=== PATIENT | female | born 2000 | race Caucasian/White ===

== ENCOUNTER 2023-01-01 21:45 | Emergency (ER) | payer BC, MEDICAID ==
[~2023-01-01] VITALS: Ht 167.6 cm; Wt 57.2 kg
[2023-01-01 23:10] LABS: BASOPHILS % (AUTO) 0.5 % (0.0-2.0); EOSINOPHILS % (AUTO) 0.5 % (0.0-6.0); HEMATOCRIT 38 % (33-45); HEMOGLOBIN 12.7 g/dL (11.5-14.8); LYMPHOCYTES # (AUTO) 1.7 K/uL (0.8-4.8); LYMPHOCYTES % (AUTO) 23.4 % (20.0-44.0); MEAN CORPUSCULAR HEMOGLOBIN 29 PG (26.0-33.0); MEAN CORPUSCULAR HGB CONC 33 g/dl (31.0-36.0); MEAN CORPUSCULAR VOLUME 86 fL (82-100); MONOCYTES # (AUTO) 0.6 K/uL (0.1-1.30); MONOCYTES % (AUTO) 7.8 % (2.0-12.0); NEUTROPHILS # (AUTO) 4.9 K/uL (1.8-8.9); NEUTROPHILS % (AUTO) 67.8 % (43.0-81.0); PLATELET COUNT (AUTO) 179 K/uL (150-450); RED BLOOD CELL COUNT(AUTO) 4.42 MIL/uL (4.0-5.2); RED CELL DISTRIBUTION WIDTH 13.6 % (11.5-15.0); WHITE BLOOD COUNT (AUTO) 7.2 K/uL (4.3-11.0)
[2023-01-01 23:25] LABS: ALBUMIN 3.9 g/dL (3.4-5.0); BILIRUBIN,DIRECT 0.1 mg/dL (0.0-0.2); BILIRUBIN,TOTAL 0.5 mg/dL (0.2-1.0); TOTAL PROTEIN, SERUM 7.9 g/dL (6.4-8.2)
[2023-01-01 23:34] LABS: CALCIUM, SERUM 8.8 mg/dL (8.5-10.1); CREATININE 0.7 mg/dL (0.6-1.3); POTASSIUM 3.6 mmol/L (3.5-5.1)
[2023-01-02 00:12] LABS: APPEARANCE,URINE SLIGHTLY CLOUDY (CLEAR); BILIRUBIN,URINE 1+ (NEGATIVE); BLOOD, URINE NEGATIVE Ery/uL (NEGATIVE); COLOR,URINE YELLOW (YELLOW); KETONES,URINE 1+ mg/dL (NEGATIVE); LEUKOCYTE ESTERASE ,URINE TRACE (NEGATIVE); NITRITE, URINE NEGATIVE (NEGATIVE); PROTEIN,URINE NEGATIVE (NEGATIVE); UGLUCOSE NEGATIVE (NEGATIVE)
[2023-01-02 00:15] LABS: PREGNANCY TEST URINE QUAL NEGATIVE (NEGATIVE)
[2023-01-02 00:24] LABS: ADD URINE CULTURE NO; BACTERIA,URINE 1+ /HPF (None Seen); RBC,URINE NONE SEEN /HPF (0-2); SQUAMOUS EPITHELIAL CELL,UR Many /HPF (None Seen)
[2023-01-02] MEDS ORDERED: IBUP-1955 PO (00:27)
[2023-01-02 02:31] VITALS: BP 109/72; TEMP 99.2; O2SAT 99
== END 2023-01-02 02:34 | disposition home or self-care (01) ==
LOC: ER 21:49
DX: R10.31 Right lower quadrant pain (principal); R10.32 Left lower quadrant pain
CPT/HCPCS: 36415; 80048-TC; 80076-TC; 81001; 83690-TC; 84703-TC; 85025-TC

== ENCOUNTER 2023-12-01 01:17 | Emergency (ER) | payer MEDICAID ==
[~2023-12-01] VITALS: Ht 167.6 cm; Wt 62.6 kg
[~2023-12-01 01:17] MED LIST: IBUP-1955 PO
[2023-12-01 01:38] VITALS: BP 115/73; TEMP 98.4; O2SAT 100
[2023-12-01] MEDS ORDERED: AMOXICILLIN TRIHYDRATE 250 MG CAPSULE ONE (01:47)
[2023-12-01] MEDS ORDERED: FAMOTIDINE (20 MG) 20 MG TABLET ONE (01:47)
[2023-12-01] MEDS ORDERED: IBUPROFEN 600 MG TABLET ONE (01:48)
[2023-12-01] MEDS: IBUPROFEN 600 MG TABLET PO ONE (01:49)
[2023-12-01] MEDS: FAMOTIDINE (20 MG) 20 MG TABLET PO ONE (01:49)
[2023-12-01] MEDS: AMOXICILLIN TRIHYDRATE 500 MG CAPSULE PO ONE (01:49)
[2023-12-01 02:14] LABS: APPEARANCE,URINE CLEAR (CLEAR); BILIRUBIN,URINE NEGATIVE (NEGATIVE); BLOOD, URINE NEGATIVE Ery/uL (NEGATIVE); COLOR,URINE YELLOW (YELLOW); KETONES,URINE NEGATIVE (NEGATIVE); LEUKOCYTE ESTERASE ,URINE 1+ (NEGATIVE); NITRITE, URINE NEGATIVE (NEGATIVE); PH,URINE 7.5 (5.0-8.0); PROTEIN,URINE NEGATIVE (NEGATIVE); UGLUCOSE NEGATIVE (NEGATIVE); UROBILINOGEN,URINE 0.2 EU/dL (0.2)
[2023-12-01 02:16] LABS: PREGNANCY TEST URINE QUAL NEGATIVE (NEGATIVE)
[2023-12-01] MEDS ORDERED: AMOX500C2 PO (02:24)
[2023-12-01 02:33] LABS: ADD URINE CULTURE YES; BACTERIA,URINE 2+ /HPF (None Seen); RBC,URINE NONE SEEN /HPF (0-2); SQUAMOUS EPITHELIAL CELL,UR 21-50 /HPF (None Seen)
== END 2023-12-01 04:14 | disposition home or self-care (01) ==
LOC: ER 01:21
DX: H66.93 Otitis media, unspecified, bilateral (principal); R10.2 Pelvic and perineal pain
CPT/HCPCS: 81001; 84703-TC; 87086-TC

== ENCOUNTER 2024-08-28 19:58 | Emergency (ER) | payer MEDICAID ==
[~2024-08-28] VITALS: Ht 175.3 cm; Wt 64.4 kg
[~2024-08-28 19:58] MED LIST changes: +AMOX500C2 PO
[2024-08-28] MEDS ORDERED: ACETAMINOPHEN ES 500 MG TABLET ONE (21:33)
[2024-08-28] MEDS ORDERED: ONDANSETRON 4 MG TAB.RAPDIS ONE (21:33)
[2024-08-28 21:35] LABS: PLATELET COUNT (AUTO) 213 K/uL (150-450); RED BLOOD CELL COUNT(AUTO) 5.06 MIL/uL (4.0-5.2); RED CELL DISTRIBUTION WIDTH 13.0 % (11.5-15.0); WHITE BLOOD COUNT (AUTO) 9.1 K/uL (4.3-11.0)
[2024-08-28] MEDS: ONDANSETRON 4 MG TAB.RAPDIS PO ONE (21:36)
[2024-08-28 21:38] LABS: APPEARANCE,URINE CLEAR (CLEAR); BLOOD, URINE 3+ Ery/uL (NEGATIVE); LEUKOCYTE ESTERASE ,URINE NEGATIVE (NEGATIVE); NITRITE, URINE NEGATIVE (NEGATIVE); UGLUCOSE NEGATIVE (NEGATIVE)
[2024-08-28 21:41] LABS: PREGNANCY TEST URINE QUAL NEGATIVE (NEGATIVE)
[2024-08-28 21:43] LABS: ADD URINE CULTURE YES; SQUAMOUS EPITHELIAL CELL,UR Many /HPF (None Seen)
[2024-08-28] MEDS: ACETAMINOPHEN ES 500 MG TABLET PO ONE (21:44)
[2024-08-28] MEDS ORDERED: NAPROXEN 250 MG TABLET ONE (21:45)
[2024-08-28 21:50] LABS: ASPARTATE AMINOTRANSFERASE 9.0 U/L (15-37); CALCIUM, SERUM 9.3 mg/dL (8.5-10.1); CREATININE 0.7 mg/dL (0.6-1.3); SODIUM SERUM 141.0 mmol/L (136-145); TOTAL PROTEIN, SERUM 8.1 g/dL (6.4-8.2); UREA NITROGEN, BLOOD 8.0 mg/dL (7-18)
[2024-08-28] MEDS: NAPROXEN 250 MG TABLET PO STA (21:50)
[2024-08-28] MEDS ORDERED: NAPR-1009 PO (22:08)
[2024-08-29] MEDS ORDERED: ONDANSETRON HCL/PF 4 MG/2 ML VIAL ONE (00:39)
[2024-08-29] MEDS ORDERED: MORPHINE SULFATE INJ 2 MG/ML DISP.SYRIN ONE (00:40)
[2024-08-29] MEDS ORDERED: CT SWABBABLE VALVE TRANS SET 1 EA INFUS.SET MC ONE (00:48)
[2024-08-29] MEDS ORDERED: IOHEXOL-300 100 ML VIAL IV ONE (00:48)
[2024-08-29] MEDS ORDERED: IV NS 0.9% 250 ML IV ONE (00:48)
[2024-08-29] MEDS: ONDANSETRON HCL/PF - ER 4 MG/2 ML VIAL IV ONE (00:50)
[2024-08-29] MEDS: MORPHINE SULFATE INJ 2 MG/ML DISP.SYRIN IV ONE (00:50)
[2024-08-29] MEDS ORDERED: NITR100C6 PO (02:11)
[2024-08-29 02:23] VITALS: BP 104/67; TEMP 98.9; O2SAT 98
== END 2024-08-29 02:24 | disposition home or self-care (01) ==
LOC: ER 20:00
DX: R10.30 Lower abdominal pain, unspecified (principal); R11.0 Nausea; Z79.899 Other long term (current) drug therapy
CPT/HCPCS: 99285; 76856; 85025; 80048; 87086; 83690; 80076; 84703; 81001; 36415 ×2; 74177; 96374; 96375; 87040; 83605; Q0162; J2405 ×2; J7050; J2270; Q9967